=== PATIENT | female | born 1980 | race Caucasian/White ===

== ENCOUNTER 2019-06-24 06:40 | Outpatient (CLI) | payer OTHER ==
--- NOTE | 2019-06-24 07:38 | ULT ---
GALLBLADDER ULTRASOUND: Date: 06/24/19 INDICATION: Right upper quadrant pain. FINDINGS: There is no evidence of focal hepatic lesion or acute gallbladder pathology. The Chaudhary's sign is rep orted as negative by electrical cad designer. Common duct is normal, measuring 2.0 mm. Evaluation of the right up per quadrant is otherwise unremarkable. IMPRESSION: No acute gallbladder pathology. POS: [facility]
== END 2019-06-24 06:41 | disposition home or self-care (01) ==
LOC: ULT 06:40
PROVIDERS: ATTEND Nurse Practitioner Family
DX: R10.11 Right upper quadrant pain (principal)
CPT/HCPCS: 76705

== ENCOUNTER 2023-01-04 14:07 | Outpatient (CLI) | payer BC | END 2023-01-04 14:08 | disposition home or self-care (01) | LOC: TBSIIMAG 14:07 | PROVIDERS: ATTEND Neurological Surgery | DX: M43.16 Spondylolisthesis, lumbar region (principal); M47.816 Spondylosis without myelopathy or radiculopathy, lumbar region; M47.815 Spondylosis without myelopathy or radiculopathy, thoracolumbar region | CPT/HCPCS: 72120; 72148 ==